=== PATIENT | female | born 1965 | race Caucasian/White ===

== ENCOUNTER 2018-03-12 15:25 | Emergency (ER) | payer OTHER ==
[~2018-03-12] VITALS: Ht 167.6 cm; Wt 99.8 kg
[2018-03-12 15:37] VITALS: BP 141/77
[2018-03-12] MEDS: ACETAMINOPHEN 325 MG TAB PO ONE (16:54)
[2018-03-12 17:15] VITALS: BP 140/74
== END 2018-03-12 17:15 | disposition home or self-care (01) ==
LOC: MED 15:25
DX: S20.219A Contusion of unspecified front wall of thorax, initial encounter (principal); S40.811A Abrasion of right upper arm, initial encounter; V42.5XXA Car driver injured in collision with two- or three-wheeled motor vehicle in traffic accident, initial encounter; Y93.89 Activity, other specified; Y99.8 Other external cause status; Y92.410 Unspecified street and highway as the place of occurrence of the external cause
CPT/HCPCS: 71045; 99283